=== PATIENT | male | born 1970 | race Caucasian/White ===

== ENCOUNTER → 2017-03-14 | Outpatient (CLI) | payer BC, OTHER | LOC: RAD 08:27 | DX: M25.531 Pain in right wrist (principal) ==

== ENCOUNTER → 2017-04-24 | Outpatient (CLI) | payer BC | LOC: MRI 11:17 | DX: M25.531 Pain in right wrist (principal) ==

== ENCOUNTER → 2018-03-29 | Outpatient (CLI) | payer BC, OTHER | LOC: MRI 09:04 | DX: S83.241A Other tear of medial meniscus, current injury, right knee, initial encounter (principal); S83.31XA Tear of articular cartilage of right knee, current, initial encounter; X58.XXXA Exposure to other specified factors, initial encounter; Y93.89 Activity, other specified; Y92.89 Other specified places as the place of occurrence of the external cause; Y99.8 Other external cause status ==